=== PATIENT | male | born 1960 | race African-American/Black ===

== ENCOUNTER 2020-01-14 19:08 | Inpatient (IN) ==
[2020-01-14] MEDS ORDERED: SODIUM CHLORIDE 0.9% 500 ML IV STA (19:45)
[2020-01-14] MEDS ORDERED: PANTOPRAZOLE 40 MG VIAL IV STA (19:45)
[2020-01-14] MEDS ORDERED: ONDANSETRON 4 MG/2 ML VIAL IV STA (19:45)
[2020-01-14 20:01] LABS: Basophils % 0.3 % (0.0-0.8); Eosinophils % 1.3 % (0.00-10.9); Hemoglobin 10.5 GM/DL (14.0-18.0); Immature Granulocytes % 0.3 %; Immature Granulocytes Absolute 0.01 #; Lymphocytes # 1.1 10*3/uL (1.4-4.0); Lymphocytes % 35.5 % (21.2-54.2); Mean Corpuscular Volume 90.6 FL (87-102); Mean Platelet Volume 12.1 FL (9.6-12.0); Monocytes % 14.7 % (1.7-12.7); Neutrophils % 47.9 % (38.7-73.9); Platelet Count 100 T/CUMM (130-400); Red Blood Count 3.31 MC/CUMM (3.8-5.5); Red Cell Distribution Width 15.1 % (9.3-17.3)
[2020-01-14 20:16] LABS: Alanine Aminotransferase 67 U/L (16-61); Albumin 3.3 G/DL (3.4-5.0); Alkaline Phosphatase 133 U/L (45-117); Amylase 25 U/L (25-115); Aspartate Amino Transferase 180 U/L (0-37); Blood Urea Nitrogen 85 MG/DL (7-18); Calcium 8.1 MG/DL (8.5-10.1); Estimated Glom Filtration Rate 27 ML/MIN; Glucose 360 MG/DL (74-106); Total Protein 7.7 G/DL (6.4-8.3)
[2020-01-14 20:53] LABS: Hypochromasia 1+
[2020-01-14 20:54] LABS: Platelet Estimate Adequate
[2020-01-14] MEDS ORDERED: MAGNESIUM SULF RIDER 2 GM in PREMIX 1 EACH IV STA (21:03)
[2020-01-14] MEDS ORDERED: THIAMINE INJ 100 MG, FOLIC ACID INJ 1 MG, MAGNESIUM SULF INJ 2 GM, MULTIVITAMIN INJ 10 ... IV ONE (21:08)
[2020-01-14] MEDS ORDERED: GLUCAGON 1 MG VIAL IM PRN (21:46)
[2020-01-14] MEDS ORDERED: DEXTROSE 50% 25 GM/50 ML VIAL IV PRN (21:46)
[2020-01-14] MEDS ORDERED: ONDANSETRON 4 MG/2 ML VIAL IV PRN (21:46)
[2020-01-14] MEDS ORDERED: LORazepam 2 MG/1 ML VIAL IV PRN (21:55)
[2020-01-14 21:59] LABS: Barbiturates Screen,Urine Negative (Negative); Benzodiazepines Screen,Urine Negative (Negative); Cannabinoid Screen,Urine Negative (Negative); Opiate Screen,Urine Negative (Negative); Phencyclidine Screen,Urine Negative (Negative)
[2020-01-14 22:15] LABS: Bilirubin,Urine Negative (Negative); Blood, Urine Large mg/dL (Negative); Glucose,Urine (UA) 150 mg/dL (Negative); Hyaline Casts,Urine 3 /LPF (0-3); Ketones,Urine Negative (Negative); Nitrite,Urine Negative (Negative); Protein,Urine Negative; RBC,Urine <1 /HPF (0-4); Squamous Epithelial Cell,Urine Occasional /HPF (0-10); Urine Appearance CLEAR (Clear); Urine Color Yellow (Yellow); Urine Specific Gravity 1.013 (1.001-1.035); Urine Urobilinogen < 2.0 EU/DL (0.2-1.0); WBC,Urine <1 /HPF (0-6)
[2020-01-15] MEDS: SODIUM CHLORIDE 0.9% 1,000 ML IV SCH ×3 (00:38→15:34)
[2020-01-15 07:25] LABS: Basophils % 0.4 % (0.0-0.8); Eosinophils # 0.1 10*3/uL (0.0-0.87); Eosinophils % 1.8 % (0.00-10.9); Hematocrit 28.6 VOL% (42.0-52.0); Hemoglobin 9.7 GM/DL (14.0-18.0); Immature Granulocytes % 0.4 %; Immature Granulocytes Absolute 0.01 #; Lymphocytes % 36.4 % (21.2-54.2); Mean Corpuscular HGB Conc 33.9 GM/DL (32-36); Mean Corpuscular Volume 92.6 FL (87-102); Mean Platelet Volume 11.3 FL (9.6-12.0); Monocytes % 12.5 % (1.7-12.7); Neutrophils % 48.5 % (38.7-73.9); Platelet Count 82 T/CUMM (130-400); Red Blood Count 3.09 MC/CUMM (3.8-5.5); Red Cell Distribution Width 15.4 % (9.3-17.3); White Blood Count 2.7 T/CUMM (4-12)
[2020-01-15 07:32] LABS: INR 1.1; PT Patient Result 11.9 SECS (9.8-11.9); Partial Thromboplastin Time 28.5 SECS (23.9-33.8)
[2020-01-15 07:43] LABS: Anisocytosis 2+; Platelet Estimate Decreased
[2020-01-15 07:44] LABS: Macrocytosis Slight
[2020-01-15 07:48] LABS: Albumin 2.9 G/DL (3.4-5.0); Bilirubin,Direct 0.34 MG/DL (0.0-0.20); Bilirubin,Indirect 0.4 MG/DL (0.0-1.0); Bilirubin,Total 0.7 MG/DL (0.2-1.0); Calcium 8.1 MG/DL (8.5-10.1); Osmolality,Calculated 305.5 MOS/KG (273-304); Total Protein 7.3 G/DL (6.4-8.3)
[2020-01-15] MEDS ORDERED: PANTOPRAZOLE 40 MG VIAL IV SCH (09:00)
[2020-01-15] MEDS ORDERED: THIAMINE 200 MG/2 ML VIAL IM SCH (09:00)
[2020-01-15] MEDS: INSULIN LISPRO 100 UNIT/ML SUBCUT SCH ×4 (09:13→22:27)
[2020-01-15] MEDS: FOLIC ACID 1 MG TABLET PO SCH (09:14)
[2020-01-15] MEDS: THIAMINE 100 MG TABLET PO SCH (09:18)
[2020-01-15 10:01] LABS: Hepatitis B Core IgM Quant 0.25 Index; Hepatitis B Surface Ag Quant 0.47 Index; Hepatitis B Surface Ag Result Negative (Negative); Hepatitis C Virus Ab Quant 0.09 Index; Hepatitis C Virus Ab Result Negative (Negative)
[2020-01-15 10:39] LABS: % Iron Saturation 50.3 % (18-50); Ferritin 1875.8 ng/ml (26-388)
[2020-01-15 10:40] LABS: Folate > 24.0 NG/ML (5.4-24.0); Vitamin B12 1634 PG/ML (211-911)
[2020-01-16] MEDS: SODIUM CHLORIDE 0.9% 1,000 ML IV SCH ×2 (02:01→06:00)
[2020-01-16 06:08] LABS: Basophils % 0.7 % (0.0-0.8); Eosinophils % 1.4 % (0.00-10.9); Hematocrit 27.8 VOL% (42.0-52.0); Hemoglobin 9.7 GM/DL (14.0-18.0); Immature Granulocytes % 0.4 %; Immature Granulocytes Absolute 0.01 #; Lymphocytes # 1.1 10*3/uL (1.4-4.0); Lymphocytes % 38.6 % (21.2-54.2); Mean Corpuscular HGB Conc 34.9 GM/DL (32-36); Mean Corpuscular Volume 92.4 FL (87-102); Mean Platelet Volume 11.7 FL (9.6-12.0); Monocytes % 13.3 % (1.7-12.7); Neutrophils % 45.6 % (38.7-73.9); Red Blood Count 3.01 MC/CUMM (3.8-5.5); Red Cell Distribution Width 15.2 % (9.3-17.3); White Blood Count 2.9 T/CUMM (4-12)
[2020-01-16 06:11] LABS: Platelet Count 78 T/CUMM (130-400)
[2020-01-16 06:32] LABS: Hypochromasia 1+; Platelet Estimate Decreased
[2020-01-16 06:38] LABS: Bilirubin,Total 1.2 MG/DL (0.2-1.0); Calcium 8.6 MG/DL (8.5-10.1); Osmolality,Calculated 290.4 MOS/KG (273-304); Total Protein 7.3 G/DL (6.4-8.3)
[2020-01-16 07:30] VITALS: BP 128/67
[2020-01-16] MEDS: INSULIN LISPRO 100 UNIT/ML SUBCUT SCH ×2 (09:56→11:47)
[2020-01-16] MEDS: THIAMINE 100 MG TABLET PO SCH (09:57)
[2020-01-16] MEDS: FOLIC ACID 1 MG TABLET PO SCH (09:57)
== END 2020-01-16 11:46 | disposition home health service (06) | DRG 683 ==
LOC: EDUNIT# → EDBD → N.ED 19:08 → N.EDINP 21:46 → N.5E 01-15 03:15
PROVIDERS: ADMIT Internal Medicine; ATTEND Internal Medicine

== ENCOUNTER 2020-11-18 01:19 | Observation (INO) ==
[2020-11-18] MEDS ORDERED: SODIUM CHLORIDE 0.9% 1,000 ML IV STA (02:03)
[2020-11-18 03:06] LABS: Basophils % 0.5 % (0.0-0.8); Eosinophils # 0.1 10*3/uL (0.0-0.87); Eosinophils % 0.8 % (0.00-10.9); Hematocrit 29.4 VOL% (42.0-52.0); Hemoglobin 9.9 GM/DL (14.0-18.0); Immature Granulocytes % 0.6 %; Immature Granulocytes Absolute 0.04 #; Lymphocytes # 1.7 10*3/uL (1.4-4.0); Lymphocytes % 26.2 % (21.2-54.2); Mean Corpuscular HGB Conc 33.7 GM/DL (32-36); Mean Corpuscular Volume 92.7 FL (87-102); Mean Platelet Volume 9.5 FL (9.6-12.0); Monocytes % 10.2 % (1.7-12.7); Neutrophils % 61.7 % (38.7-73.9); Platelet Count 245 T/CUMM (130-400); Red Blood Count 3.17 MC/CUMM (3.8-5.5); White Blood Count 6.6 T/CUMM (4-12)
[2020-11-18 03:24] LABS: Hypochromasia Slight
[2020-11-18 03:25] LABS: Platelet Estimate Normal
[2020-11-18 03:34] LABS: Alanine Aminotransferase 40 U/L (16-61); Albumin 3.1 G/DL (3.4-5.0); Alkaline Phosphatase 107 U/L (45-117); Aspartate Amino Transferase 37 U/L (0-37); Bilirubin,Total < 0.39 MG/DL (0.20-1.00); Blood Urea Nitrogen 38 MG/DL (7-18); Calcium 9.1 MG/DL (8.5-10.1); Carbon Dioxide 25 MMOL/L (21-32); Estimated Glom Filtration Rate 85 ML/MIN; Glucose 161 MG/DL (74-106); Osmolality,Calculated 288.5 MOS/KG (273-304); Potassium 3.2 MMOL/L (3.5-5.1); Sodium 139 MMOL/L (136-145); Total Protein 7.5 G/DL (6.4-8.2)
[2020-11-18] MEDS ORDERED: PANTOPRAZOLE INJ 80 MG in SODIUM CHLORIDE 0.9% 100 ML IV ONE (04:01)
[2020-11-18] MEDS ORDERED: PANTOPRAZOLE 40 MG VIAL IV ONE (04:13)
[2020-11-18] MEDS ORDERED: GLUCAGON 1 MG VIAL IM PRN (04:43)
[2020-11-18] MEDS ORDERED: DEXTROSE 50% 25 GM/50 ML VIAL IV PRN (04:43)
[2020-11-18] MEDS ORDERED: ONDANSETRON 4 MG/2 ML VIAL IV PRN (05:04)
[2020-11-18] MEDS: INSULIN REGULAR 100 UNIT/ML SUBCUT SCH ×4 (08:30→20:41)
[2020-11-18] MEDS: PANTOPRAZOLE INJ 200 MG in SODIUM CHLORIDE 0.9% 250 ML IV SCH (09:00)
[2020-11-18] MEDS: POTASSIUM CHLORIDE RIDER 10 MEQ/100 ML PREMIX IV SCH ×6 (09:05→19:49)
[2020-11-18] MEDS: SODIUM CHLORIDE 0.9% 1,000 ML IV SCH (10:01)
[2020-11-18 11:23] LABS: Hematocrit 30.4 VOL% (42.0-52.0); Hemoglobin 10.2 GM/DL (14.0-18.0)
[2020-11-18] MEDS ORDERED: POTASSIUM CHLORIDE RIDER 10 MEQ/100 ML PREMIX IV ONE (15:23)
[2020-11-18 16:32] LABS: Hematocrit 28.6 VOL% (42.0-52.0); Hemoglobin 9.5 GM/DL (14.0-18.0)
[2020-11-18] MEDS: ACETAMINOPHEN 325 MG TABLET PO PRN (20:42)
[2020-11-18 22:12] LABS: Hematocrit 28.1 VOL% (42.0-52.0); Hemoglobin 9.3 GM/DL (14.0-18.0)
[2020-11-19] MEDS: SODIUM CHLORIDE 0.9% 1,000 ML IV SCH ×2 (01:48→14:56)
[2020-11-19 06:08] LABS: Basophils % 0.4 % (0.0-0.8); Eosinophils # 0.1 10*3/uL (0.0-0.87); Eosinophils % 2.6 % (0.00-10.9); Hematocrit 29.4 VOL% (42.0-52.0); Hemoglobin 9.7 GM/DL (14.0-18.0); Immature Granulocytes % 0.6 %; Immature Granulocytes Absolute 0.03 #; Lymphocytes # 1.6 10*3/uL (1.4-4.0); Lymphocytes % 31.5 % (21.2-54.2); Mean Corpuscular Volume 92.7 FL (87-102); Mean Platelet Volume 9.2 FL (9.6-12.0); Monocytes % 8.3 % (1.7-12.7); Neutrophils % 56.6 % (38.7-73.9); Platelet Count 245 T/CUMM (130-400); Red Blood Count 3.17 MC/CUMM (3.8-5.5)
[2020-11-19 06:19] LABS: INR 1.1; PT Patient Result 11.9 SECS (10.5-12.0); Partial Thromboplastin Time 29.5 SECS (23.9-33.8)
[2020-11-19 06:24] LABS: Calcium 8.8 MG/DL (8.5-10.1); Osmolality,Calculated 280.4 MOS/KG (273-304); Potassium 3.5 MMOL/L (3.5-5.1)
[2020-11-19] MEDS ORDERED: MAGNESIUM SULF RIDER 2 GM/50 ML PREMIX IV ONE (07:25)
[2020-11-19 07:59] LABS: Ferritin 677.8 ng/mL (26-388)
[2020-11-19] MEDS: ACETAMINOPHEN 325 MG TABLET PO PRN (10:49)
[2020-11-19] MEDS: INSULIN REGULAR 100 UNIT/ML SUBCUT SCH ×2 (10:52→13:12)
[2020-11-19] MEDS: PANTOPRAZOLE INJ 200 MG in SODIUM CHLORIDE 0.9% 250 ML IV SCH (11:24)
[2020-11-19 12:17] VITALS: BP 127/65
== END 2020-11-19 14:12 ==
LOC: EDUNIT# → EDBD → N.EDINP 01:19 → N.ED 01:19 → N.5E 17:13
PROVIDERS: ADMIT Internal Medicine; ATTEND Internal Medicine

== ENCOUNTER 2022-02-10 07:52 | Inpatient (IN) ==
[2022-02-10] MEDS ORDERED: SODIUM CHLORIDE 0.9% 1,000 ML IV STA (08:15)
[2022-02-10 08:36] LABS: Basophils % 0.3 % (0.0-0.8); Eosinophils % 0.5 % (0.00-10.9); Hematocrit 31.2 VOL% (42.0-52.0); Hemoglobin 10.3 GM/DL (14.0-18.0); Immature Granulocytes % 0.8 %; Immature Granulocytes Absolute 0.05 #; Lymphocytes # 1.3 10*3/uL (1.4-4.0); Lymphocytes % 21.6 % (21.2-54.2); Mean Platelet Volume 9.3 FL (9.6-12.0); Monocytes # 0.5 10*3/uL (0.11-0.8); Neutrophils % 68.8 % (38.7-73.9); Platelet Count 324 T/CUMM (130-400); Red Blood Count 3.25 MC/CUMM (3.8-5.5); White Blood Count 6.1 T/CUMM (4-12)
[2022-02-10 08:58] LABS: Bilirubin,Total 0.5 MG/DL (0.20-1.00); Calcium 8.5 MG/DL (8.5-10.1); Osmolality,Calculated 277.5 MOS/KG (273-304); Total Protein 8.3 G/DL (6.4-8.2)
[2022-02-10] MEDS ORDERED: SODIUM CHLOR 0.9% KCL 40 MEQ 40 MEQ/1,000 ML BAG IV SCH (09:30)
[2022-02-10] MEDS ORDERED: ONDANSETRON 4 MG/2 ML VIAL IV PRN (10:59)
[2022-02-10 11:53] LABS: % Iron Saturation 25.8 % (18-50); Ferritin 1983.2 ng/mL (26-388)
[2022-02-10] MEDS: LACTATED RINGERS 1,000 ML IV SCH (11:53)
[2022-02-10] MEDS: PANTOPRAZOLE 40 MG VIAL IV SCH ×2 (11:54→22:15)
[2022-02-10 12:10] LABS: Folate 10.98 NG/ML (5.38-24.0)
[2022-02-10] MEDS: INSULIN LISPRO 100 UNIT/ML SUBCUT SCH ×3 (12:25→22:17)
[2022-02-10 13:39] LABS: Hemoglobin 9.9 GM/DL (14.0-18.0)
[2022-02-10 19:06] LABS: Hemoglobin 9.5 GM/DL (14.0-18.0)
[2022-02-10] MEDS: ACETAMINOPHEN 325 MG TABLET PO PRN (23:40)
[2022-02-11] MEDS: LACTATED RINGERS 1,000 ML IV SCH ×5 (02:34→19:21)
[2022-02-11 05:24] LABS: Hematocrit 27.1 VOL% (42.0-52.0); Hemoglobin 9.1 GM/DL (14.0-18.0)
[2022-02-11 05:26] LABS: Basophils % 0.4 % (0.0-0.8); Eosinophils % 0.7 % (0.00-10.9); Hematocrit 26.7 VOL% (42.0-52.0); Hemoglobin 9.1 GM/DL (14.0-18.0); Immature Granulocytes % 1.1 %; Immature Granulocytes Absolute 0.06 #; Lymphocytes # 1.3 10*3/uL (1.4-4.0); Lymphocytes % 23.5 % (21.2-54.2); Mean Corpuscular HGB Conc 34.1 GM/DL (32-36); Mean Platelet Volume 9.5 FL (9.6-12.0); Monocytes # 0.5 10*3/uL (0.11-0.8); Monocytes % 9.2 % (1.7-12.7); Neutrophils % 65.1 % (38.7-73.9); Platelet Count 269 T/CUMM (130-400); Red Blood Count 2.87 MC/CUMM (3.8-5.5); Red Cell Distribution Width 13.3 % (9.3-17.3); White Blood Count 5.6 T/CUMM (4-12)
[2022-02-11 05:53] LABS: Calcium 7.7 MG/DL (8.5-10.1); Osmolality,Calculated 278.3 MOS/KG (273-304)
[2022-02-11 05:56] LABS: Potassium 2.5 MMOL/L (3.5-5.1)
[2022-02-11] MEDS: POTASSIUM CHLORIDE RIDER 10 MEQ/100 ML PREMIX IV PRN ×6 (06:07→12:31)
[2022-02-11] MEDS: INSULIN LISPRO 100 UNIT/ML SUBCUT SCH ×4 (09:04→21:18)
[2022-02-11] MEDS: ACETAMINOPHEN 325 MG TABLET PO PRN ×2 (09:06→19:21)
[2022-02-11] MEDS: PANTOPRAZOLE 40 MG VIAL IV SCH ×2 (09:07→21:14)
[2022-02-11] MEDS ORDERED: LIDOCAINE 2% 5 ML VIAL ONE (13:26)
[2022-02-11] MEDS ORDERED: propofoL 200 MG/20 ML VIAL IV ONE (13:26)
[2022-02-11] MEDS ORDERED: MAGNESIUM SULF RIDER 4 GM/100 ML PREMIX IV ONE (14:00)
[2022-02-11] MEDS ORDERED: GLUCAGON 1 MG VIAL IM PRN (14:33)
[2022-02-11] MEDS ORDERED: DEXTROSE 10% 250 ML BAG IV PRN (14:33)
[2022-02-12] MEDS: LACTATED RINGERS 1,000 ML IV SCH ×4 (02:27→22:57)
[2022-02-12 06:19] LABS: Basophils % 0.2 % (0.0-0.8); Eosinophils % 0.5 % (0.00-10.9); Hemoglobin 9.2 GM/DL (14.0-18.0); Immature Granulocytes % 0.9 %; Immature Granulocytes Absolute 0.05 #; Lymphocytes # 1.3 10*3/uL (1.4-4.0); Mean Corpuscular HGB Conc 34.1 GM/DL (32-36); Mean Corpuscular Volume 92.8 FL (87-102); Mean Platelet Volume 9.6 FL (9.6-12.0); Monocytes # 0.5 10*3/uL (0.11-0.8); Monocytes % 8.7 % (1.7-12.7); Neutrophils % 66.7 % (38.7-73.9); Platelet Count 267 T/CUMM (130-400); Red Blood Count 2.91 MC/CUMM (3.8-5.5); Red Cell Distribution Width 13.4 % (9.3-17.3); White Blood Count 5.7 T/CUMM (4-12)
[2022-02-12 06:41] LABS: Osmolality,Calculated 272.7 MOS/KG (273-304); Potassium 2.9 MMOL/L (3.5-5.1)
[2022-02-12] MEDS ORDERED: MAGNESIUM SULF RIDER 2 GM/50 ML PREMIX IV ONE (08:30)
[2022-02-12] MEDS: PANTOPRAZOLE 40 MG VIAL IV SCH ×2 (08:55→20:41)
[2022-02-12] MEDS: INSULIN LISPRO 100 UNIT/ML SUBCUT SCH ×4 (08:55→21:48)
[2022-02-12] MEDS: POTASSIUM CHLORIDE 20 MEQ TABLET PO PRN ×4 (10:49→19:23)
[2022-02-12] MEDS: ACETAMINOPHEN 325 MG TABLET PO PRN (20:41)
[2022-02-13 06:20] LABS: Basophils % 0.2 % (0.0-0.8); Eosinophils % 0.5 % (0.00-10.9); Hematocrit 28.1 VOL% (42.0-52.0); Hemoglobin 9.3 GM/DL (14.0-18.0); Immature Granulocytes % 0.5 %; Immature Granulocytes Absolute 0.03 #; Lymphocytes # 1.2 10*3/uL (1.4-4.0); Lymphocytes % 21.7 % (21.2-54.2); Mean Corpuscular HGB Conc 33.1 GM/DL (32-36); Mean Platelet Volume 9.8 FL (9.6-12.0); Monocytes # 0.5 10*3/uL (0.11-0.8); Monocytes % 8.6 % (1.7-12.7); Neutrophils % 68.5 % (38.7-73.9); Platelet Count 270 T/CUMM (130-400); Red Blood Count 2.99 MC/CUMM (3.8-5.5); Red Cell Distribution Width 13.5 % (9.3-17.3); White Blood Count 5.7 T/CUMM (4-12)
[2022-02-13 06:39] LABS: Calcium 8.3 MG/DL (8.5-10.1); Osmolality,Calculated 270.1 MOS/KG (273-304); Potassium 3.5 MMOL/L (3.5-5.1)
[2022-02-13] MEDS: INSULIN LISPRO 100 UNIT/ML SUBCUT SCH ×4 (06:45→21:14)
[2022-02-13] MEDS: PANTOPRAZOLE 40 MG VIAL IV SCH ×2 (08:42→21:10)
[2022-02-13] MEDS: LACTATED RINGERS 1,000 ML IV SCH ×2 (08:43→21:09)
[2022-02-13] MEDS: FERRIC GLUCONATE COMPLEX 125 MG in SODIUM CHLORIDE 0.9% 100 ML IV SCH (10:56)
[2022-02-13] MEDS: traZODone 50 MG TABLET PO SCH (21:11)
[2022-02-14 05:51] LABS: Basophils % 0.3 % (0.0-0.8); Eosinophils % 0.7 % (0.00-10.9); Hemoglobin 8.5 GM/DL (14.0-18.0); Immature Granulocytes % 0.7 %; Immature Granulocytes Absolute 0.04 #; Lymphocytes # 1.2 10*3/uL (1.4-4.0); Lymphocytes % 19.8 % (21.2-54.2); Mean Corpuscular HGB Conc 32.7 GM/DL (32-36); Mean Corpuscular Volume 94.5 FL (87-102); Monocytes # 0.5 10*3/uL (0.11-0.8); Monocytes % 8.7 % (1.7-12.7); Neutrophils % 69.8 % (38.7-73.9); Platelet Count 250 T/CUMM (130-400); Red Blood Count 2.75 MC/CUMM (3.8-5.5); Red Cell Distribution Width 13.8 % (9.3-17.3); White Blood Count 6.1 T/CUMM (4-12)
[2022-02-14 06:06] LABS: Calcium 8.1 MG/DL (8.5-10.1); Osmolality,Calculated 274.7 MOS/KG (273-304); Potassium 3.2 MMOL/L (3.5-5.1)
[2022-02-14] MEDS: LACTATED RINGERS 1,000 ML IV SCH ×3 (08:00→17:39)
[2022-02-14] MEDS: FERRIC GLUCONATE COMPLEX 125 MG in SODIUM CHLORIDE 0.9% 100 ML IV SCH (08:21)
[2022-02-14] MEDS: PANTOPRAZOLE 40 MG VIAL IV SCH ×2 (08:21→21:02)
[2022-02-14] MEDS: INSULIN LISPRO 100 UNIT/ML SUBCUT SCH ×4 (11:44→21:03)
[2022-02-14] MEDS ORDERED: MAGNESIUM SULF RIDER 2 GM/50 ML PREMIX IV ONE (13:18)
[2022-02-14] MEDS ORDERED: BISACODYL 5 MG TABLET PO ONE (15:00)
[2022-02-14] MEDS ORDERED: POLYETHYLENE GLYCOL POWDER 255 GM BOTTLE PO ONE (18:00)
[2022-02-14] MEDS: SIMVASTATIN 20 MG TABLET PO SCH (20:55)
[2022-02-14] MEDS: traZODone 50 MG TABLET PO SCH (20:55)
[2022-02-15] MEDS ORDERED: POLYETHYLENE GLYCOL POWDER 255 GM BOTTLE PO ONE ×2 (05:00→08:30)
[2022-02-15 06:44] LABS: Basophils % 0.1 % (0.0-0.8); Eosinophils % 0.6 % (0.00-10.9); Hematocrit 26.6 VOL% (42.0-52.0); Hemoglobin 8.8 GM/DL (14.0-18.0); Immature Granulocytes % 0.6 %; Immature Granulocytes Absolute 0.04 #; Lymphocytes % 13.4 % (21.2-54.2); Mean Corpuscular HGB Conc 33.1 GM/DL (32-36); Mean Corpuscular Volume 96.4 FL (87-102); Mean Platelet Volume 10.5 FL (9.6-12.0); Monocytes # 0.6 10*3/uL (0.11-0.8); Monocytes % 8.9 % (1.7-12.7); Neutrophils % 76.4 % (38.7-73.9); Platelet Count 264 T/CUMM (130-400); Red Blood Count 2.76 MC/CUMM (3.8-5.5); Red Cell Distribution Width 13.9 % (9.3-17.3); White Blood Count 7.2 T/CUMM (4-12)
[2022-02-15 06:59] LABS: Calcium 8.6 MG/DL (8.5-10.1); Osmolality,Calculated 272.1 MOS/KG (273-304); Potassium 3.2 MMOL/L (3.5-5.1)
[2022-02-15] MEDS ORDERED: POTASSIUM CHLORIDE 20 MEQ TABLET PO ONE ×2 (09:00→15:44)
[2022-02-15] MEDS ORDERED: MAGNESIUM SULF RIDER 2 GM/50 ML PREMIX IV ONE (09:00)
[2022-02-15] MEDS: INSULIN LISPRO 100 UNIT/ML SUBCUT SCH ×4 (09:36→22:36)
[2022-02-15] MEDS: PANTOPRAZOLE 40 MG VIAL IV SCH ×2 (09:37→22:36)
[2022-02-15] MEDS: FERRIC GLUCONATE COMPLEX 125 MG in SODIUM CHLORIDE 0.9% 100 ML IV SCH (09:37)
[2022-02-15] MEDS: LACTATED RINGERS 1,000 ML IV SCH ×3 (09:37→20:31)
[2022-02-15] MEDS: traZODone 50 MG TABLET PO SCH (22:36)
[2022-02-15] MEDS: SIMVASTATIN 20 MG TABLET PO SCH (22:36)
[2022-02-16 04:45] LABS: Basophils % 0.3 % (0.0-0.8); Eosinophils # 0.1 10*3/uL (0.0-0.87); Eosinophils % 0.9 % (0.00-10.9); Hematocrit 26.9 VOL% (42.0-52.0); Hemoglobin 8.6 GM/DL (14.0-18.0); Immature Granulocytes % 0.3 %; Immature Granulocytes Absolute 0.02 #; Lymphocytes # 1.2 10*3/uL (1.4-4.0); Lymphocytes % 18.7 % (21.2-54.2); Mean Corpuscular Volume 98.2 FL (87-102); Mean Platelet Volume 10.1 FL (9.6-12.0); Monocytes # 0.6 10*3/uL (0.11-0.8); Monocytes % 9.4 % (1.7-12.7); Neutrophils % 70.4 % (38.7-73.9); Platelet Count 254 T/CUMM (130-400); Red Blood Count 2.74 MC/CUMM (3.8-5.5); Red Cell Distribution Width 14.1 % (9.3-17.3); White Blood Count 6.6 T/CUMM (4-12)
[2022-02-16 05:16] LABS: Calcium 8.2 MG/DL (8.5-10.1); Osmolality,Calculated 277.5 MOS/KG (273-304); Potassium 3.7 MMOL/L (3.5-5.1)
[2022-02-16] MEDS: PANTOPRAZOLE 40 MG VIAL IV SCH (08:44)
[2022-02-16] MEDS: INSULIN LISPRO 100 UNIT/ML SUBCUT SCH ×4 (08:44→21:18)
[2022-02-16] MEDS: FERRIC GLUCONATE COMPLEX 125 MG in SODIUM CHLORIDE 0.9% 100 ML IV SCH (08:50)
[2022-02-16] MEDS ORDERED: MAGNESIUM SULF RIDER 2 GM/50 ML PREMIX IV ONE (11:12)
[2022-02-16] MEDS ORDERED: LACTATED RINGERS 1,000 ML IV SCH (12:00)
[2022-02-16] MEDS ORDERED: propofoL 200 MG/20 ML VIAL IV ONE ×2 (12:08→12:25)
[2022-02-16] MEDS ORDERED: LIDOCAINE 2% 5 ML VIAL ONE (12:08)
[2022-02-16] MEDS ORDERED: PHENYLEPHRINE 1 MG/10 ML SYRINGE IV ONE (12:25)
[2022-02-16] MEDS ORDERED: DEXTROSE 50% 25 GM/50 ML VIAL IV PRN (13:13)
[2022-02-16] MEDS ORDERED: GLUCAGON 1 MG VIAL IM PRN (13:13)
[2022-02-16] MEDS: LACTATED RINGERS 1,000 ML IV SCH ×2 (21:18→22:18)
[2022-02-16] MEDS: traZODone 50 MG TABLET PO SCH (21:18)
[2022-02-16] MEDS: SIMVASTATIN 20 MG TABLET PO SCH (21:18)
[2022-02-17] MEDS: LACTATED RINGERS 1,000 ML IV SCH ×2 (05:00→15:19)
[2022-02-17] MEDS: INSULIN LISPRO 100 UNIT/ML SUBCUT SCH ×2 (08:40→12:51)
[2022-02-17 08:55] LABS: Basophils % 0.3 % (0.0-0.8); Eosinophils % 0.6 % (0.00-10.9); Hematocrit 28.8 VOL% (42.0-52.0); Hemoglobin 9.2 GM/DL (14.0-18.0); Immature Granulocytes % 0.5 %; Immature Granulocytes Absolute 0.03 #; Lymphocytes # 1.1 10*3/uL (1.4-4.0); Lymphocytes % 17.2 % (21.2-54.2); Mean Corpuscular HGB Conc 31.9 GM/DL (32-36); Mean Platelet Volume 9.9 FL (9.6-12.0); Monocytes # 0.4 10*3/uL (0.11-0.8); Monocytes % 6.9 % (1.7-12.7); Neutrophils % 74.5 % (38.7-73.9); Platelet Count 303 T/CUMM (130-400); Red Blood Count 2.97 MC/CUMM (3.8-5.5); White Blood Count 6.2 T/CUMM (4-12)
[2022-02-17] MEDS ORDERED: PANTOPRAZOLE 40 MG VIAL IV SCH (09:00)
[2022-02-17] MEDS: FERRIC GLUCONATE COMPLEX 125 MG in SODIUM CHLORIDE 0.9% 100 ML IV SCH (09:36)
[2022-02-17 12:40] VITALS: BP 122/66
[2022-02-18] MEDS ORDERED: PANTOPRAZOLE 40 MG TABLET PO SCH (06:30)
== END 2022-02-17 15:18 | disposition swing bed (61) | DRG 379 ==
LOC: N.ED 07:52 → N.EDINP 10:59 → SUATTDRO 10:59 → N.3E 15:30 → N.2E 02-15 16:41
PROVIDERS: ADMIT Internal Medicine; ATTEND Hospitalist